=== PATIENT | male | born 1995 | race Hispanic/Latino ===

== ENCOUNTER 2021-11-10 05:02 | Emergency (ER) | payer SELFPAY ==
[2021-11-10 05:47] LABS: Bilirubin Negative (Negative); Blood, Urine Negative (Negative); Clarity Clear (Clear); Glucose, Urine (Dipstick) Normal (Negative); Ketone, Urine Negative (Negative); Leukocyte Negative Leu/uL (Negative); Nitrite Negative (Negative); Protein, Urine (Dipstick) Negative (Neg-Trace); Specific Gravity, Urine 1.009 (1.002-1.036); Urobilinogen Normal mg/dL (Less than 2); pH, Urine 6.5 (5.0-9.0)
[2021-11-10] MEDS ORDERED: cefTRIAXone\\ROCEPHIN 500 MG VIAL ONE (06:04)
[2021-11-10] MEDS ORDERED: Lidocaine 1% PF 5 ML VIAL ONE (06:05)
[2021-11-12 05:32] LABS: Chlam.trachomatis by PCR,Urine DETECTED (NotDetected)
== END 2021-11-10 06:39 | disposition home or self-care (01) ==
LOC: ERS 05:02
DX: N34.2 Other urethritis (principal); F17.210 Nicotine dependence, cigarettes, uncomplicated
CPT/HCPCS: 81003; 87491; 87591; 96372; 99283; J0696